=== PATIENT | male | born 1975 | race Two or more races ===

== ENCOUNTER 2018-12-02 19:21 | Inpatient (IN) | payer OTHER ==
[~2018-12-02] VITALS: Ht 177.8 cm; Wt 124.0 kg
[2018-12-02] MEDS ORDERED: cloNIDine HCL 0.1 MG TAB ONE (19:31)
[2018-12-02] MEDS ORDERED: cloNIDine HCL 0.1 MG TAB PO ONE (19:45)
[2018-12-02 20:02] LABS: Basophils # (auto) 0.1 uL; Eosinophils # (auto) 0.3 uL; Hematocrit 26.2 % (41.0-53.0); Hemoglobin 8.8 g/dL (13.5-17.5); Lymphocytes # (auto) 2.1 uL; Lymphocytes % (auto) 15.3 % (10.0-50.0); Mean Corpuscular Hemoglobin 28.1 pg (28.0-32.0); Mean Corpuscular Hgb Conc. 33.6 g/dL (32.0-36.0); Mean Corpuscular Volume 83.7 fL (80.0-100.0); Monocytes % (auto) 7.6 % (0.0-12.0); Neutrophils # (auto) 10.3 uL; Neutrophils % (auto) 74.1 % (37.0-80.0); Platelet Count (auto) 286 10^3/uL (140-450); Red Blood Cells 3.13 10^6/uL (4.5-5.90); White Blood Cell 13.8 10^3/uL (4.4-10.8)
[2018-12-02 20:28] LABS: Albumin 2.6 g/dL (3.4-5.0); Calcium 7.3 mg/dL (8.5-10.1); Magnesium 1.9 mg/dL (1.6-2.6); Potassium 3.6 mmol/L (3.5-5.1)
[2018-12-02 20:33] LABS: Bilirubin, Total 0.2 mg/dL (0.2-1.0)
[2018-12-02] MEDS ORDERED: SODIUM CHLORIDE 0.9% 500 ML IV ONE (20:45)
[2018-12-02] MEDS ORDERED: ALBUTEROL SULF 2.5 MG/0.5ML(0.5%) NEB SOLN NEB ONE (20:45)
[2018-12-02] MEDS ORDERED: IPRATROPIUM BROM 0.5 MG/2.5ML INH SOL NEB ONE (20:45)
[2018-12-02] MEDS ORDERED: methylPREDNISolone SOD SUCC 125 MG/2 ML VL IV ONE (20:45)
[2018-12-02 22:13] LABS: Urine Bacteria FEW /hpf (None Seen); Urine Blood 1+ /uL (Negative); Urine Specific Gravity 1.012 (1.001-1.035); Urine WBC 4 /hpf (0 - 3)
[2018-12-02] MEDS ORDERED: AZITHROMYCIN 500MG/ 250ML 250 ML IV ONE (23:00)
[2018-12-02] MEDS ORDERED: cefTRIAXone 1GM/50ML D5W 50 ML IV ONE (23:00)
[2018-12-02] MEDS ORDERED: ENOXAPARIN SOD 100 MG/1 ML SYRINGE SC ONE (23:15)
[2018-12-02] MEDS ORDERED: cloNIDine HCL 0.1 MG TAB PO PRN (23:15)
[2018-12-02] MEDS ORDERED: DEXTROSE (50%) 50ML SYRG IV PRN (23:15)
[2018-12-02] MEDS ORDERED: ONDANSETRON HCL 4 MG/2 ML VIAL IV PRN (23:15)
[2018-12-02] MEDS ORDERED: ACETAMINOPHEN 325 MG TAB PO PRN (23:15)
[2018-12-02] MEDS ORDERED: FUROSEMIDE 20 MG/2 ML VIAL IV ONE (23:15)
[2018-12-02] MEDS ORDERED: MORPHINE SULF INJ 2 MG/ML SYRINGE 1ML IV PRN (23:15)
[2018-12-02] MEDS ORDERED: NITROGLYCERIN 0.4 MG SL TAB SL PRN (23:15)
[2018-12-02] MEDS ORDERED: TEMAZEPAM 15 MG CAP PO PRN (23:15)
[2018-12-02] MEDS ORDERED: ALBUTEROL SULF 2.5 MG/0.5ML(0.5%) NEB SOLN NEB PRN (23:15)
[2018-12-02] MEDS ORDERED: ATORVASTATIN 20 MG TAB PO ONE (23:15)
[2018-12-02] MEDS ORDERED: METOPROLOL TARTRATE 25 MG TAB PO ONE (23:15)
[2018-12-02] MEDS ORDERED: HYDROcodone-ACET 5/325MG TAB PO PRN (23:15)
[2018-12-02 23:56] LABS: Cholesterol 160 mg/dL (< 200)
--- NOTE | 2018-12-02 23:58 | NUR ---
Telemetry admit from ER ANTIONETTE BUCKLEY admitted to Telemetry unit after SBAR received. Patient oriented to Robbie Mcnally, primary RN, unit, room, bed, and unit policies regarding patient care and visiting hours. Patient now on continuous telemetry monitoring, tele box # 8 and telemetry reading on arrival to unit is sinus rhythm. Patient placed on bedside oxygen at 3 LPM, weighed by bedscale and encouraged to call if they need something. All questions and concerns addressed, patient verbalized understanding.
[2018-12-03] VITALS (8 sets, daily range): BP systolic 141–161; BP diastolic 82–89
[2018-12-03] LABS: HDL Cholesterol 35 mg/dL (40-59); Triglycerides 301 mg/dL (< 150)
[2018-12-03 00:16] LABS: LDL Cholesterol 90 mg/dL (< 100)
[2018-12-03] MEDS: ACCU-CHEK COMFORT CURVE STRIP VI SCH ×4 (00:25→17:21)
[2018-12-03] MEDS: InsuLIN REG 1unit/0.01ml Soln (100units/ml) SC SCH ×4 (00:26→17:21)
--- NOTE | 2018-12-03 00:43 | NUR ---
Respiratory note: ASSESSMENT FOR PRN MED NEB TX. HR 91, SPO2 97% ON 3L NC, RR 20, BS CLEAR/DIMINISHED. PT PRESENTING NO RESPIRATORY DISTRESS AT THIS TIME. RN AT BEDSIDE, WILL CONTINUE TO MONITOR.
[2018-12-03] MEDS ORDERED: LISI-646 PO (02:40)
[2018-12-03] MEDS ORDERED: HYDR25TA4 PO (02:40)
[2018-12-03] MEDS ORDERED: INSUINJ2 SC (02:40)
[2018-12-03] MEDS ORDERED: AMLO5TAB15 PO (02:40)
[2018-12-03] MEDS ORDERED: METF-370 PO (02:40)
[2018-12-03 06:20] LABS: Basophils # (auto) 0 uL; Basophils % (auto) 0.4 % (0.0-2.0); Eosinophils # (auto) 0 uL; Hematocrit 28.8 % (41.0-53.0); Hemoglobin 9.3 g/dL (13.5-17.5); Mean Corpuscular Hemoglobin 28.1 pg (28.0-32.0); Mean Corpuscular Hgb Conc. 32.3 g/dL (32.0-36.0); Mean Corpuscular Volume 86.9 fL (80.0-100.0); Monocytes # (auto) 0.1 uL; Monocytes % (auto) 0.8 % (0.0-12.0); Neutrophils # (auto) 11.1 uL; Neutrophils % (auto) 90.8 % (37.0-80.0); Platelet Count (auto) 290 10^3/uL (140-450); Red Blood Cells 3.32 10^6/uL (4.5-5.90); Red Cell Distribution Width 14.2 % (11.8-14.3); White Blood Cell 12.2 10^3/uL (4.4-10.8)
[2018-12-03 06:39] LABS: Albumin 2.5 g/dL (3.4-5.0); BUN/Creatinine Ratio 11.9; Calcium 7.6 mg/dL (8.5-10.1); Potassium 4.5 mmol/L (3.5-5.1)
[2018-12-03 06:44] LABS: Bilirubin, Total 0.4 mg/dL (0.2-1.0); Total Protein 7.3 g/dL (6.4-8.2)
--- NOTE | 2018-12-03 07:04 | NUR ---
Respiratory note: PRN MED NEB TX NOT INDICATED AT THIS TIME. HR 91, RR 16, SPO2 96% ON 4 L NC, BS CLEAR AND DIMINISHED. NO SIGNS OR SYMPTOMS OF RESPIRATORY DISTRESS NOTED AT THIS TIME.PT INFORMED TO HIT CALL BUTTON IF FEELING SOB OR WHEEZING.
--- NOTE | 2018-12-03 07:45 | NUR ---
Opening Shift Note Assumed care of patient, resting with eyes closed, respirations even and unlabored. No S/S of distress/SOB or pain. Will continue to monitor for changes Q1hr and PRN.
--- NOTE | 2018-12-03 09:00 | NUR ---
NEPHRO CONSULT Dr Granda rounded for nephro consult.
[2018-12-03] MEDS ORDERED: ASPirin 81 mg TAB PO SCH (10:00)
[2018-12-03] MEDS: METOPROLOL TARTRATE 25 MG TAB PO SCH ×2 (10:45→21:35)
[2018-12-03] MEDS: cefTRIAXone 1GM/50ML D5W 50 ML IV SCH (10:45)
[2018-12-03] MEDS: BUMETANIDE 2.5mg/10ml (0.25 mg/ml) INJ IV SCH ×2 (10:46→17:22)
[2018-12-03] MEDS ORDERED: LISINOPRIL 20 MG TAB PO ONE (13:00)
[2018-12-03] MEDS ORDERED: CLOPIDOGREL 300 MG TAB PO ONE (13:00)
--- NOTE | 2018-12-03 13:11 | NUR ---
ROUNDING Dr Ron Villarreal rounding with primary RN and patients family at bedside. Discussed test results, medications, and plan of care. Patient verbalized understanding. Patient asked to eat, verbal order read back and noted.
[2018-12-03] MEDS: AZITHROMYCIN 500MG/ 250ML 250 ML IV SCH (13:29)
[2018-12-03 14:19] LABS: Alcohol, Urine < 3.0 mg/dL (0-5); Amphetamine Screen, Urine NEGATIVE (NEGATIVE); Barbiturate Scree,Urine NEGATIVE (NEGATIVE); Benzodiazephine Screen, Urine NEGATIVE (NEGATIVE); Cannabinoid Screen, Urine NEGATIVE (NEGATIVE); Cocaine Screen, Urine NEGATIVE (NEGATIVE); Opiate Scree,Urine NEGATIVE (NEGATIVE); Phencyclidine Screen, Urine NEGATIVE (NEGATIVE)
[2018-12-03 14:27] LABS: Protein, Urine 375.3 mg/dL (0.0-11.9)
--- NOTE | 2018-12-03 16:56 | NUR ---
CARDIO CONSULT Dr Strong rounding on patient with primary RN. Patient mom at bedside. Discussed plan of care and medications. Orders updated with RN and MD.
[2018-12-03] MEDS ORDERED: LISI-285 PO (17:32)
[2018-12-03] MEDS ORDERED: INSREG3 SUBCUT (17:32)
--- NOTE | 2018-12-03 18:20 | NUR ---
Respiratory note: NO PRN TX GIVEN AT THIS TIME, NOT INDICATED. NO SOB NOTED. PT AWAKE AND ALERT, FAMILY AT BEDSIDE. PT IS ORDERED FOR CPAP AT NOC, STATES HE GOES TO SLEEP AROUND 9. WILL RETURN AT 2100 FOR CPAP. PT ASKING FOR DINNER IDGNA PAPPAS NOTIFIED.
--- NOTE | 2018-12-03 20:30 | NUR ---
Opening Shift Note Assumed care of patient, awake and alert. Orientated patient to RNSharmin. No S/S of distress/SOB or pain. Instructed on POC and to call for assist PRN, will continue to monitor for changes Q1hr and PRN. Call light within reach and bed in low position.
[2018-12-03] MEDS: hydrALAZINE HCL 25 MG TAB PO SCH (21:35)
[2018-12-03] MEDS: ATORVASTATIN 20 MG TAB PO SCH (21:35)
--- NOTE | 2018-12-03 21:40 | NUR ---
Respiratory note: PT PLACED ON CPAP FOR THE NOC ORDERED. PT DENIES SOB OR ANY NEEDS AT THIS TIME. SPO2 96%, HR 88, RR 16, BREATH SOUNDS CLEAR/DIMINISHED THROUGHOUT. NO PRN TX GIVEN. WILL CONTINUE TO MONITOR.
[2018-12-04] MEDS: InsuLIN REG 1unit/0.01ml Soln (100units/ml) SC SCH ×4 (00:07→19:41)
[2018-12-04] MEDS: ACCU-CHEK COMFORT CURVE STRIP VI SCH ×4 (00:07→17:39)
[2018-12-04 05:20] VITALS: BP 133/82
[2018-12-04] MEDS: BUMETANIDE 2.5mg/10ml (0.25 mg/ml) INJ IV SCH ×2 (05:39→17:38)
[2018-12-04] MEDS: hydrALAZINE HCL 25 MG TAB PO SCH ×3 (05:40→22:28)
--- NOTE | 2018-12-04 06:45 | NUR ---
Respiratory note: ASSESSED PT FOR PRN TX, PT WAS AWAKE AND ALERT, NO RESP DISTRESS NOTED. HR 76, RR 18, SPO2 97% ON 2L N/C. BS ARE CLEAR AND DIMINISHED, NO INDICATION FOR TX AT THIS TIME. PT KNOWS TO HAVE RT PAGED IF TX IS NEEDED
[2018-12-04 07:02] LABS: Albumin 2.5 g/dL (3.4-5.0); Calcium 7.8 mg/dL (8.5-10.1); Potassium 3.7 mmol/L (3.5-5.1)
[2018-12-04 07:05] LABS: Bilirubin, Total 0.2 mg/dL (0.2-1.0); Phosphorus 5.3 mg/dL (2.5-4.90); Total Protein 7.2 g/dL (6.4-8.2)
--- NOTE | 2018-12-04 07:23 | NUR ---
Report given to julita HOLLEY
--- NOTE | 2018-12-04 07:42 | NUR ---
Opening Shift Note Assumed care of patient, awake and alert. No S/S of distress/SOB or pain. Instructed on POC and to call for assist PRN, will continue to monitor for changes Q1hr and PRN. Call light within reach.
[2018-12-04 08:00] VITALS: BP 154/93
--- NOTE | 2018-12-04 08:44 | NUR ---
[facility]-NOT ON SCHEDULE CALLED AND SPOKE TO ANIMAL BOUNTY HUNTER RN. PER RN PATIENT IS NOT ON SCHEDULE FOR [facility] TODAY
[2018-12-04] MEDS: cefTRIAXone 1GM/50ML D5W 50 ML IV SCH (08:48)
[2018-12-04] MEDS ORDERED: CLOPIDOGREL BISULFATE 75 MG TAB PO SCH (10:00)
[2018-12-04] MEDS ORDERED: LISINOPRIL 20 MG TAB PO SCH (10:00)
[2018-12-04] MEDS: METOPROLOL TARTRATE 25 MG TAB PO SCH ×2 (10:26→22:29)
[2018-12-04] MEDS: AZITHROMYCIN 500MG/ 250ML 250 ML IV SCH (10:27)
[2018-12-04] MEDS: ASPirin 81 mg TAB PO SCH (10:27)
--- NOTE | 2018-12-04 10:44 | NUR ---
MD ROSEANN WHITFIELD AT BEDSIDE DISCUSSING POC WITH PATIENT. POC-RADIOLOGY CONSULT RE: TUNNEL CATH PLACEMENT WITH DIALYSIS
[2018-12-04] MEDS: SEVELAMER 800 MG TAB PO SCH ×2 (11:42→17:38)
[2018-12-04 12:00] VITALS: BP 160/90
--- NOTE | 2018-12-04 12:20 | NUR ---
AT BEDSIDE MD Clovis OBRIEN AT BEDSIDE UPDATING POC WITH PATIENT. ALL QUESTIONS ANSWERED AND ADDRESSED AT THIS TIME.
[2018-12-04 13:41] LABS: INR < 0.93 (0.9-1.15); Partial Thromboplastin Time 28.8 sec (23.64-32.05)
--- NOTE | 2018-12-04 14:15 | NUR ---
ULTRASOUND TECHNICIAN AT BEDSIDE
[2018-12-04 17:00] VITALS: BP 155/95
[2018-12-04] MEDS ORDERED: SODIUM CHLORIDE 0.9% 1,000 ML IV SCH (17:32)
[2018-12-04 17:42] LABS: Hepatitis B Surface Antigen Negative (Negative); Hepatitis C Antibody Negative (Negative)
[2018-12-04] MEDS ORDERED: amLODIPine BESYLATE 5 MG TAB PO ONE (17:45)
--- NOTE | 2018-12-04 18:56 | NUR ---
CARDIOLOGY CARDIOLOGY AT BEDSIDE REGARDING HEART CATH.
--- NOTE | 2018-12-04 19:30 | NUR ---
Opening Shift Note Assumed care of patient, awake and alert. No S/S of distress/SOB or pain. Instructed on POC and to call for assist PRN, will continue to monitor for changes Q1hr and PRN.
[2018-12-04 20:00] VITALS: BP 185/98
[2018-12-04 22:00] VITALS: BP 168/94
[2018-12-04] MEDS: ATORVASTATIN 20 MG TAB PO SCH (22:28)
[2018-12-05 05:00] VITALS: BP 149/94
[2018-12-05] MEDS: ACCU-CHEK COMFORT CURVE STRIP VI SCH ×4 (06:00→18:51)
[2018-12-05] MEDS: InsuLIN REG 1unit/0.01ml Soln (100units/ml) SC SCH ×4 (06:00→18:00)
[2018-12-05 06:06] LABS: RPR Non Reactive (Non Reactive)
[2018-12-05 06:15] LABS: Basophils # (auto) 0.1 uL; Basophils % (auto) 0.9 % (0.0-2.0); Eosinophils # (auto) 0.4 uL; Hematocrit 29.8 % (41.0-53.0); Hemoglobin 9.8 g/dL (13.5-17.5); Lymphocytes % (auto) 23.1 % (10.0-50.0); Mean Corpuscular Hemoglobin 27.6 pg (28.0-32.0); Mean Corpuscular Hgb Conc. 32.9 g/dL (32.0-36.0); Mean Corpuscular Volume 83.9 fL (80.0-100.0); Monocytes # (auto) 0.9 uL; Monocytes % (auto) 7.3 % (0.0-12.0); Neutrophils # (auto) 8.4 uL; Neutrophils % (auto) 65.7 % (37.0-80.0); Platelet Count (auto) 340 10^3/uL (140-450); Red Blood Cells 3.55 10^6/uL (4.5-5.90); Red Cell Distribution Width 14.1 % (11.8-14.3); White Blood Cell 12.8 10^3/uL (4.4-10.8)
[2018-12-05] MEDS: hydrALAZINE HCL 25 MG TAB PO SCH ×3 (06:24→21:50)
[2018-12-05] MEDS: BUMETANIDE 2.5mg/10ml (0.25 mg/ml) INJ IV SCH ×2 (06:24→21:50)
[2018-12-05 06:32] LABS: Albumin 2.6 g/dL (3.4-5.0); BUN/Creatinine Ratio 14.1; Calcium 7.8 mg/dL (8.5-10.1); Potassium 3.5 mmol/L (3.5-5.1)
[2018-12-05 06:41] LABS: INR 0.94 (0.9-1.15)
[2018-12-05 06:54] LABS: Bilirubin, Total 0.2 mg/dL (0.2-1.0); Total Protein 7.3 g/dL (6.4-8.2)
--- NOTE | 2018-12-05 07:20 | NUR ---
Report given to day shift RN.
[2018-12-05 07:21] LABS: Urine Bacteria NONE SEEN /hpf (None Seen); Urine Blood TRACE /uL (Negative); Urine Specific Gravity 1.008 (1.001-1.035); Urine WBC 4 /hpf (0 - 3)
--- NOTE | 2018-12-05 07:54 | NUR ---
Respiratory note: ASSESSED PT FOR PRN TX PT WAS ASLEEP. NO RESP DISTRESS NOTED. HR 89, RR 18, SPO2 98% ON 2L N/C. PT DID NOT WEAR CPAP LAST NIGHT, BUT WOULD LIKE TO WEAR IT TONIGHT. PT KNOWS TO HAVE RT PAGED IF TX IS NEEDED.
[2018-12-05 08:00] VITALS: BP 156/96
[2018-12-05] MEDS: SEVELAMER 800 MG TAB PO SCH ×3 (08:00→18:51)
--- NOTE | 2018-12-05 08:00 | NUR ---
Opening Shift Note Assumed care of patient, awake but very drowsy. No S/S of distress/SOB or pain. Instructed on POC and to call for assist PRN, will continue to monitor for changes Q1hr and PRN. Patient NPO for heart cath today.
[2018-12-05 08:11] LABS: Immunoglobulin G, Serum 1236 mg/dL (700-1600)
[2018-12-05] MEDS: cefTRIAXone 1GM/50ML D5W 50 ML IV SCH (09:15)
[2018-12-05] MEDS: ASPirin 81 mg TAB PO SCH (09:16)
[2018-12-05] MEDS: AZITHROMYCIN 500MG/ 250ML 250 ML IV SCH (09:17)
[2018-12-05] MEDS: METOPROLOL TARTRATE 25 MG TAB PO SCH ×2 (09:17→21:50)
[2018-12-05] MEDS: amLODIPine BESYLATE 5 MG TAB PO SCH (09:17)
[2018-12-05] MEDS ORDERED: SODIUM CHL 0.9% 1000 ML BAG XX ONE (10:45)
--- NOTE | 2018-12-05 10:50 | NUR ---
Dr. Villarreal at bedside.
[2018-12-05 12:00] VITALS: BP 164/88
--- NOTE | 2018-12-05 13:55 | NUR ---
Off Unit Patient taken to ballistics laboratory gunsmith for procedure. No obvious distress noted.
--- NOTE | 2018-12-05 14:22 | NUR ---
Nutrition Assessment Notes please see attached link for complete assessment Est. Needs ABW 100 [id number] kcal (17-20 kcal/kgBW), 80-100 gms pro (0.8-1.0gms/kgBW r/t elev RFT CKD. Will continue to monitor pertinent labs and reassess nutrient need prn Addendum: 12/05/18 at [address] L[address] Amended: Links added.
[2018-12-05] MEDS ORDERED: HEPARIN SODIUM (PORCINE) 5000 UNITS/ML 1ML VIAL ONE (14:33)
[2018-12-05] MEDS ORDERED: ANGIOMAX 250 MG VIAL IV ONE (14:33)
[2018-12-05] MEDS ORDERED: LIDOCAINE 2%HCL (LOCAL ANESTH.) INJ 20ML MDV ONE ×2 (14:34→14:46)
[2018-12-05] MEDS ORDERED: fentaNYL CITRATE 100 MCG/2 ML VL ONE (14:34)
[2018-12-05] MEDS ORDERED: MIDAZOLAM HCL 1MG/1ML-2 ML VIAL ONE (14:34)
[2018-12-05] MEDS ORDERED: SODIUM CHL 0.9% 0 ML ONE (14:34)
[2018-12-05] MEDS ORDERED: IODIXANOL 320MG/ML 100ML BTL IV ONE (14:46)
--- NOTE | 2018-12-05 16:00 | NUR ---
Dialysis Dialysis nurse at patient's bedside awaiting his return to the unit. Patient is scheduled for dialysis today.
--- NOTE | 2018-12-05 16:23 | NUR ---
I called [facility] ph [phone] and received two hemodialysis agencies and one HH agency they are contracted with. HD agencies are [facility] [phone] and [facility] [phone]. HH agency is [facility]. I informed psychologist social
--- NOTE | 2018-12-05 17:11 | NUR ---
Dr. Kalee artis. Patient still off unit, at civil laboratory technician.
--- NOTE | 2018-12-05 17:20 | NUR ---
On Unit Patient returned to unit post left heart catheterization. Dressing to right groin dry and intact. Patient to lay flat in until 1830. Patient had dialysis catheter placed to right upper chest. Dressing intact, however bleeding noted around site. area loss prevention manager is aware. Family members at bedside.
[2018-12-05 18:14] VITALS: BP 164/88
--- NOTE | 2018-12-05 19:20 | NUR ---
Assumed care of patient who is A&O x4. Currently receiving dialysis through tunneled cath in right IJ. on O2 2lpm via NC with no s/s of distress. 22 gauge IV in right hand is intact and patent. Flushed with 10ml NS. Will continue to to monitor fo changes PRN.
[2018-12-05 20:00] VITALS: BP 153/87
--- NOTE | 2018-12-05 20:10 | NUR ---
Dialysis complete. 1.2L removed. Patient tolerated well. Post dialysis BP: 168/92 HR: 93 RR: 16. Dressing changed by dialysis nurse.
[2018-12-05] MEDS ORDERED: EPOETIN ALFA 10,000 UNIT/1 ML VIAL SC ONE (21:00)
[2018-12-05 21:30] VITALS: BP 143/87
[2018-12-05] MEDS: ATORVASTATIN 20 MG TAB PO SCH (21:50)
--- NOTE | 2018-12-05 23:00 | NUR ---
ROUNDS Patient resting in bed with eyes closed, C-pap on.
[2018-12-06] MEDS: ACCU-CHEK COMFORT CURVE STRIP VI SCH ×5 (00:11→23:32)
[2018-12-06] MEDS: InsuLIN REG 1unit/0.01ml Soln (100units/ml) SC SCH ×5 (00:15→23:37)
[2018-12-06] MEDS: BUMETANIDE 2.5mg/10ml (0.25 mg/ml) INJ IV SCH ×2 (05:49→18:22)
[2018-12-06] MEDS: hydrALAZINE HCL 25 MG TAB PO SCH ×3 (05:49→22:39)
[2018-12-06 05:59] VITALS: BP 148/64
[2018-12-06 07:39] LABS: Albumin 2.5 g/dL (3.4-5.0); BUN/Creatinine Ratio 11.7; Calcium 7.8 mg/dL (8.5-10.1); Potassium 3.4 mmol/L (3.5-5.1)
--- NOTE | 2018-12-06 07:40 | NUR ---
Opening Shift Note Assumed care of patient, awake and alert sitting up in bed. No S/S of distress/SOB or pain. Right upper chest of patient's gown noticed to be moderately soiled with blood. Dressing to his tunnel catheter soaked, but intact. Will do catheter care. Instructed on POC and to call for assist PRN, will continue to monitor for changes Q1hr and PRN.
[2018-12-06 07:41] LABS: Bilirubin, Total 0.3 mg/dL (0.2-1.0)
[2018-12-06 07:42] LABS: Total Protein 7.1 g/dL (6.4-8.2)
--- NOTE | 2018-12-06 07:50 | NUR ---
Respiratory note: NO PRN BREATHING TX INDICATED AT THIS TIME. NO RESPIRATORY DISTRESS NOTED OR STATED. PATIENT IS AWARE TO HAVE RT PAGED IF PRN BREATHING TX IS NEEDED. WILL CONTINUE TO MONITOR PATIENT.
--- NOTE | 2018-12-06 08:00 | NUR ---
Dressing change Dressing change to tunnel catheter completed. Patient tolerated procedure well.
[2018-12-06] MEDS: SEVELAMER 800 MG TAB PO SCH ×3 (08:25→18:22)
[2018-12-06] MEDS: ASPirin 81 mg TAB PO SCH (08:25)
[2018-12-06] MEDS: cefTRIAXone 1GM/50ML D5W 50 ML IV SCH (08:26)
[2018-12-06] MEDS: amLODIPine BESYLATE 5 MG TAB PO SCH (08:26)
[2018-12-06] MEDS: METOPROLOL TARTRATE 25 MG TAB PO SCH ×2 (08:26→22:40)
--- NOTE | 2018-12-06 08:37 | NUR ---
Ceftriaxone Ceftriaxone leaking, new one pulled and given.
[2018-12-06 08:44] VITALS: BP 138/103
[2018-12-06] MEDS: AZITHROMYCIN 500MG/ 250ML 250 ML IV SCH (09:44)
[2018-12-06] MEDS ORDERED: POTASSIUM CHL 20 Meq TABLET PO ONE (12:30)
--- NOTE | 2018-12-06 12:30 | NUR ---
assessment Patient is a 43 year old male who is alert and oriented. Prior to admission patient lived home with his and family and functioned independently. Patient informed me his PCP is Dr Townsend in [place]. Patient informed me he works in [place] and still wants to work even though he is a new dialysis patient. I informed patient to speak to MD about his work concerns. Patient is aware of his new diagnosis and is dealing well with the news. I informed patient he has a right to privacy. Patient does not have a POA and advanced directive. I have offered patient information on POA and advanced directives. I informed the patient the advantages and benefits of having an Advanced Directive. Patient verbalized understanding and agreed to discharge plan. Addendum: 12/07/18 at 1233 by Zhane SKELTON Amended: Links added.
--- NOTE | 2018-12-06 12:35 | NUR ---
Nephrology Rounding Dr. Granda at bedside.
[2018-12-06 13:00] VITALS: BP 146/86
[2018-12-06 16:59] VITALS: BP 149/87
--- NOTE | 2018-12-06 19:20 | NUR ---
Assumed care of patient who is A&) x4. Currently on RA with no s/s of SOB or distress. Denies pain at this time. Family is at the bedside. bloody drainage from tunneled catheter noted. Drainage circled. Will continue to monitor site. POC discussed with patient who verbalizes understanding. Bed is in low locked position with side rails up x2. Encouraged to call for assistance when needed. Will continue to monitor for changes PRN.
--- NOTE | 2018-12-06 19:40 | NUR ---
Respiratory note: ASSESSMENT FOR PRN MED NEB TX. HR 97, SPO2 96% ON ROOM AIR, RR 16, BS DIMINISHED. PT PRESENTING NO RESPIRATORY DISTRESS AT THIS TIME. MED NEB TX NOT INDICATED. PT AWARE TO HAVE RN PAGE RT IF MED NEB TX IS NEEDED, WILL CONTINUE TO MONITOR.
[2018-12-06 20:00] VITALS: BP 156/92
--- NOTE | 2018-12-06 22:30 | NUR ---
Drainage from tunneled catheter has surpassed marking place at start of shift. Saturated dressing removed and replaced with sterile ABD pad. Secured with Tegaderm. Patient tolerated well. Will continue to monitor for continued drainage.
[2018-12-06] MEDS: ATORVASTATIN 20 MG TAB PO SCH (22:40)
[2018-12-06 22:44] VITALS: BP 156/92
--- NOTE | 2018-12-07 | NUR ---
Tunneled catheter dressing reassessed and is clean, dry and intact. Will continue to monitor for changes.
--- NOTE | 2018-12-07 03:30 | NUR ---
ROUNDS Patient is resting in bed on left side, with c-pap on. Spo2 is 95% No distress noted. Gauze over tunneled catheter dressing assessed and remains CDI.
[2018-12-07] MEDS: hydrALAZINE HCL 25 MG TAB PO SCH ×2 (05:32→14:00)
[2018-12-07] MEDS: BUMETANIDE 2.5mg/10ml (0.25 mg/ml) INJ IV SCH (05:32)
[2018-12-07] MEDS: ACCU-CHEK COMFORT CURVE STRIP VI SCH ×2 (05:33→12:52)
[2018-12-07] MEDS: InsuLIN REG 1unit/0.01ml Soln (100units/ml) SC SCH ×2 (05:35→12:53)
[2018-12-07 06:00] VITALS: BP 165/90
--- NOTE | 2018-12-07 06:11 | NUR ---
RT NOTE: WENT TO PTS ROOM TO CHECK ON CPAP MACHINE. PT IS CURRENTLY OFF OF CPAP AND ON 2 LPM NC. PT IS ON CONT BEDSIDE PULSE OX. HR 88, SPO2 96%, RR 16, PT SLEEPING AT THIS TIME. NO S/S OF SOB. WILL CONTINUE TO MONITOR PT.
[2018-12-07] MEDS ORDERED: SODIUM CHL 0.9% 1000 ML BAG XX ONE (07:00)
--- NOTE | 2018-12-07 08:00 | NUR ---
Opening Shift Note Assumed care of patient, awake and alert. No S/S of distress/SOB or pain. With tunneled dialysis catheter on right upper chest. Patient is scheduled for hemodialysis today. Instructed on POC and to call for assist PRN, will continue to monitor for changes Q1hr and PRN.
[2018-12-07 09:00] VITALS: BP 175/92
[2018-12-07] MEDS: SEVELAMER 800 MG TAB PO SCH ×2 (09:12→12:00)
[2018-12-07] MEDS: cefTRIAXone 1GM/50ML D5W 50 ML IV SCH (09:12)
[2018-12-07] MEDS: amLODIPine BESYLATE 5 MG TAB PO SCH (10:00)
[2018-12-07] MEDS: METOPROLOL TARTRATE 25 MG TAB PO SCH (10:00)
[2018-12-07] MEDS: ASPirin 81 mg TAB PO SCH (10:08)
[2018-12-07] MEDS: AZITHROMYCIN 500MG/ 250ML 250 ML IV SCH (10:09)
[2018-12-07 13:00] VITALS: BP 135/92
--- NOTE | 2018-12-07 15:30 | NUR ---
Spoke with Odessa of case management re: dialysis chair time, they are still working on it.
--- NOTE | 2018-12-07 16:00 | NUR ---
Hemodialysis done. 3liters out.
[2018-12-07 17:00] VITALS: BP 127/77
--- NOTE | 2018-12-07 17:10 | NUR ---
Received a call from Xiomy of [facility]. Patient got a dialysis chair time and will start outpatient dialysis next Monday 12/11. Spoke with Odessa of case management, she is discussing the chair time with Xiomy right now. Per Odessa, she will record the details of the chair time then patient can go home as long as medically cleared.
[2018-12-07 17:34] VITALS: BP 135/92
--- NOTE | 2018-12-07 18:14 | NUR ---
D/C planning Per consult for dialysis chair time. Contacted and faxed medical records to [facility] and [facility] in [place]. Félix Stauffer from [facility] Ph: ) Fax: ) pt chair time will be Monday at 13:30 and pt need to arrive at 13:00. Félix Stauffer from [facility] address of dialysis is [id number] [place] [address] [place] [address]. Addendum: 12/07/18 at 1818 by ADONIS GUTIERRES Amended: Links added.
--- NOTE | 2018-12-07 19:00 | NUR ---
Discharge instructions given as ordered. Encourage to follow up with PMD Kranthi Parker in 1-2 weeks as instructed. All questions and concerns addressed. Patient verbalized understanding. Medication reconciliation form completed and copy given to patient. IV removed with catheter intact, pressure dressing applied. Telemetry unit returned to ICU. Patient taken to vehicle via wheelchair with all personal belongings, accompanied by staff and family member. No distress noted at time of departure.
[2018-12-07] MEDS ORDERED: EPOETIN ALFA 10,000 UNIT/1 ML VIAL SC ONE (21:00)
== END 2018-12-07 17:00 | disposition home or self-care (01) | DRG 280 ==
LOC: ER 19:27 → TELE 19:28 → TELE-EAST 23:28
PROVIDERS: ADMIT Nurse Practitioner; ATTEND Family Medicine
PROC: 4A023N7 Measurement of Cardiac Sampling and Pressure, Left Heart, Percutaneous Approach (ICD-10-PCS; principal; 2018-12-02)
PROC: B2111ZZ Fluoroscopy of Multiple Coronary Arteries using Low Osmolar Contrast (ICD-10-PCS; 2018-12-02)
PROC: B2151ZZ Fluoroscopy of Left Heart using Low Osmolar Contrast (ICD-10-PCS; 2018-12-02)
PROC: 5A1D70Z Performance of Urinary Filtration, Intermittent, Less than 6 Hours Per Day (ICD-10-PCS; 2018-12-02)
PROC: 5A1D70Z Performance of Urinary Filtration, Intermittent, Less than 6 Hours Per Day (ICD-10-PCS; 2018-12-05)
DX: I21.A1 Myocardial infarction type 2 (principal); I50.33 Acute on chronic diastolic (congestive) heart failure; J18.1 Lobar pneumonia, unspecified organism; N17.0 Acute kidney failure with tubular necrosis; N18.6 End stage renal disease; I13.2 Hypertensive heart and chronic kidney disease with heart failure and with stage 5 chronic kidney disease, or end stage renal disease; J44.0 Chronic obstructive pulmonary disease with (acute) lower respiratory infection; D63.1 Anemia in chronic kidney disease; E11.22 Type 2 diabetes mellitus with diabetic chronic kidney disease; E11.65 Type 2 diabetes mellitus with hyperglycemia; E66.01 Morbid (severe) obesity due to excess calories; E78.00 Pure hypercholesterolemia, unspecified; E83.39 Other disorders of phosphorus metabolism; G47.33 Obstructive sleep apnea (adult) (pediatric); I27.20 Pulmonary hypertension, unspecified; N14.1 Nephropathy induced by other drugs, medicaments and biological substances; T50.8X5A Adverse effect of diagnostic agents, initial encounter; Z79.899 Other long term (current) drug therapy; Z87.01 Personal history of pneumonia (recurrent); Z98.61 Coronary angioplasty status; Z99.2 Dependence on renal dialysis; Z68.39 Body mass index [BMI] 39.0-39.9, adult
CPT/HCPCS: 36415; 71045; 76775; 76942; 80053; 80061; 80307; 81001; 82306; 82570; 82784; 82962; 83036; 83605; 83735; 83880; 83970; 84100; 84156; 84300; 84484; 84550; 85025; 85610; 85730; 86334; 86335; 86592; 86803; 86850; 86900; 86901; 87040; 87340; 90935; 93005; 93306; 93458; 94640; 94660; 94762; 96374; G0378; J0696; J0885; J1642; J1815; J2250; Q9967

== ENCOUNTER 2019-02-21 10:16 | Inpatient (IN) | payer OTHER ==
[~2019-02-21] VITALS: Ht 177.8 cm; Wt 121.5 kg
[~2019-02-21 10:16] MED LIST: AMLO5TAB15 PO; INSREG3 SUBCUT; INSUINJ2 SC; LISI-285 PO; METF-370 PO
[2019-02-21 11:25] LABS: Basophils # (auto) 0.1 uL; Basophils % (auto) 0.8 % (0.0-2.0); Eosinophils # (auto) 0.3 uL; Eosinophils % (auto) 2.9 % (0.0-7.0); Hematocrit 31.1 % (41.0-53.0); Hemoglobin 10.6 g/dL (13.5-17.5); Lymphocytes # (auto) 2.6 uL; Lymphocytes % (auto) 23.1 % (10.0-50.0); Mean Corpuscular Hemoglobin 29.8 pg (28.0-32.0); Mean Corpuscular Volume 87.4 fL (80.0-100.0); Monocytes # (auto) 0.8 uL; Neutrophils # (auto) 7.4 uL; Neutrophils % (auto) 66.2 % (37.0-80.0); Platelet Count (auto) 289 10^3/uL (140-450); Red Blood Cells 3.55 10^6/uL (4.5-5.90); Red Cell Distribution Width 15.9 % (11.8-14.3); White Blood Cell 11.2 10^3/uL (4.4-10.8)
[2019-02-21 11:35] LABS: Albumin 3.2 g/dL (3.4-5.0); Potassium 4.3 mmol/L (3.5-5.1)
[2019-02-21 11:39] LABS: BUN/Creatinine Ratio 10.5; Bilirubin, Total 0.3 mg/dL (0.2-1.0); INR 0.98 (0.9-1.15)
[2019-02-21] MEDS ORDERED: ACETAMINOPHEN 500 MG TAB PO PRN (18:45)
[2019-02-21] MEDS ORDERED: TEMAZEPAM 15 MG CAP PO PRN (18:45)
[2019-02-21] MEDS ORDERED: MORPHINE SULF INJ 2 MG/ML SYRINGE 1ML IV PRN (18:45)
[2019-02-21] MEDS ORDERED: PROMETHAZINE HCL 25 MG/ML 1ML IV PRN (18:45)
[2019-02-21] MEDS ORDERED: traMADol HCL 50 MG TAB PO PRN (18:45)
[2019-02-21] MEDS ORDERED: NITROGLYCERIN 0.4 MG SL TAB SL PRN (18:45)
[2019-02-21] MEDS ORDERED: DEXTROSE (50%) 50ML SYRG IV PRN (18:45)
[2019-02-21] MEDS: ACCU-CHEK COMFORT CURVE STRIP VI SCH ×2 (20:04→23:50)
[2019-02-21] MEDS: InsuLIN REG 1unit/0.01ml Soln (100units/ml) SC SCH ×2 (20:05→23:50)
[2019-02-21] MEDS: FAMOTIDINE 20 MG TAB PO SCH ×2 (22:00→22:16)
[2019-02-21 22:40] VITALS: BP_SYST 160; BP_SYST 96; BP_DIAS 48; BP_DIAS 84
[2019-02-21] MEDS ORDERED: ATOR20TA50 PO (23:31)
[2019-02-21] MEDS ORDERED: AMLO10TA13 PO (23:31)
[2019-02-21] MEDS ORDERED: HYD20I PO (23:31)
[2019-02-21] MEDS ORDERED: INSUINJ2 SC (23:31)
[2019-02-21] MEDS ORDERED: SEVE800T PO (23:31)
[2019-02-21] MEDS ORDERED: HYDR-4296 PO (23:31)
[2019-02-21] MEDS ORDERED: ISO60SRT PO (23:31)
[2019-02-21] MEDS ORDERED: MET50T PO (23:31)
[2019-02-21 23:33] VITALS: BP 160/84
[2019-02-22] MEDS: InsuLIN REG 1unit/0.01ml Soln (100units/ml) SC SCH ×3 (04:00→12:00)
[2019-02-22] MEDS: ACCU-CHEK COMFORT CURVE STRIP VI SCH ×3 (04:00→12:00)
[2019-02-22 05:04] VITALS: BP 157/86
--- NOTE | 2019-02-22 07:30 | NUR ---
Opening Shift Note Assumed care of patient, who is alert and oriented x4. No S/S of distress/SOB or pain. Hemodialysis catheter dressing to the right upper chest is dry and intact, with catheter hanging, taped down for stability. Bed is in the lowest position with 2x side rails up for safety. Call light is within reach. Instructed on POC and to call for assist PRN, will continue to monitor for changes Q1hr and PRN.
[2019-02-22 08:00] VITALS: BP 164/94
[2019-02-22 09:00] VITALS: BP 164/94
--- NOTE | 2019-02-22 10:15 | NUR ---
DR KAUSHIK LEON
--- NOTE | 2019-02-22 10:50 | NUR ---
DR EWELINA LEON
--- NOTE | 2019-02-22 11:00 | NUR ---
RECEIVED PAPER FROM RADIOLOGY REGARDING CONSULT THAT WAS PLACED BY [facility] FOR HD CATH . PER RADIOLOGY THERE IS NO RADIOLOGIST AT THIS TIME AND PROCEDURE WILL NOT BE DONE UNTIL MONDAY. DR THEODORE NOTIFIED WELL DR FAULKNER. CONSENTS SIGNED IN CHART AND PATIENT AWARE. PER BOTH MD PATIENT IS TO BE DISCHARGED AND HAVE THIS DONE OUTPATIENT.
[2019-02-22] MEDS ORDERED: LISI-275 PO (12:05)
[2019-02-22] MEDS ORDERED: HYDR50TA15 PO (12:05)
[2019-02-22] MEDS ORDERED: ASPI81CH59 PO (12:05)
[2019-02-22] MEDS ORDERED: METO-169 PO (12:05)
[2019-02-22] MEDS ORDERED: ATOR20TA50 PO (12:05)
[2019-02-22] MEDS ORDERED: FAM20T PO (12:05)
[2019-02-22] MEDS ORDERED: SEVE800T PO (12:05)
[2019-02-22] MEDS ORDERED: INSU1INJ4 SC (12:05)
[2019-02-22 13:00] VITALS: BP 165/89
[2019-02-22 14:02] VITALS: BP 164/94
--- NOTE | 2019-02-22 14:30 | NUR ---
Discharge instructions given as ordered. Encourage to follow up with PMD as instructed. All questions and concerns addressed. Patient verbalized understanding. Medication reconciliation form completed and copy given to patient. IV removed with catheter intact, pressure dressing applied and patient tolerated well. Telemetry unit returned to ICU. Patient ambulated out of hospital with all personal belongings, accompanied by a family member. No distress noted at time of departure.
== END 2019-02-22 14:30 | disposition home or self-care (01) | DRG 314 ==
LOC: ER 10:16 → TELE 10:17 → TELE-WESTW 22:30
PROVIDERS: ADMIT Internal Medicine; ATTEND Hospitalist
DX: T82.41XA Breakdown (mechanical) of vascular dialysis catheter, initial encounter (principal); N18.6 End stage renal disease; I13.2 Hypertensive heart and chronic kidney disease with heart failure and with stage 5 chronic kidney disease, or end stage renal disease; I50.22 Chronic systolic (congestive) heart failure; E78.5 Hyperlipidemia, unspecified; I25.2 Old myocardial infarction; G47.30 Sleep apnea, unspecified; E11.22 Type 2 diabetes mellitus with diabetic chronic kidney disease; E66.01 Morbid (severe) obesity due to excess calories; G47.00 Insomnia, unspecified; E11.65 Type 2 diabetes mellitus with hyperglycemia; D72.829 Elevated white blood cell count, unspecified; I25.5 Ischemic cardiomyopathy; Y71.2 Prosthetic and other implants, materials and accessory cardiovascular devices associated with adverse incidents; E11.21 Type 2 diabetes mellitus with diabetic nephropathy; Z99.2 Dependence on renal dialysis; Z83.3 Family history of diabetes mellitus; Z82.49 Family history of ischemic heart disease and other diseases of the circulatory system; Z79.4 Long term (current) use of insulin; Z79.899 Other long term (current) drug therapy; Y92.89 Other specified places as the place of occurrence of the external cause; Z68.38 Body mass index [BMI] 38.0-38.9, adult
CPT/HCPCS: 36415; 71046; 80053; 82962; 83036; 85025; 85610; 85730; 87081; G0378; J1815

== ENCOUNTER 2023-05-20 22:59 | Emergency (ER) | payer BC, OTHER ==
[~2023-05-20] VITALS: Ht 175.3 cm; Wt 120.1 kg
[~2023-05-20 22:59] MED LIST changes: -AMLO5TAB15 PO; +ASPI81CH59 PO; +ATOR20TA50 PO; +FAMO20TA10 PO; +HYDR-4297 PO; -INSREG3 SUBCUT; +INSU1INJ4 SC; -INSUINJ2 SC; +LISI-275 PO; -LISI-285 PO; -METF-370 PO; +METO-289 PO; +SEVE800T PO
[2023-05-20 23:46] LABS: Basophils # (auto) 0.1 10 ^3/uL (0-0.2); Basophils % (auto) 0.7 % (0.0-2.0); Eosinophils # (auto) 0.4 10 ^3/uL (0-0.8); Eosinophils % (auto) 3.9 % (0.0-7.0); Hemoglobin 11.8 g/dL (13.5-17.5); Lymphocytes # (auto) 2.9 10 ^3/uL (0.4-5.4); Lymphocytes % (auto) 25.8 % (10.0-50.0); Mean Corpuscular Hemoglobin 28.9 pg (28.0-32.0); Mean Corpuscular Hgb Conc. 32.6 g/dL (32.0-36.0); Mean Corpuscular Volume 88.4 fL (80.0-100.0); Monocytes # (auto) 0.9 10 ^3/uL (0-1.3); Monocytes % (auto) 7.8 % (0.0-12.0); Neutrophils # (auto) 6.9 10 ^3/uL (1.6-8.6); Neutrophils % (auto) 61.8 % (37.0-80.0); Red Blood Cells 4.08 10^6/uL (4.5-5.90); Red Cell Distribution Width 14.8 % (11.8-14.3); White Blood Cell 11.2 10^3/uL (4.4-10.8)
[2023-05-20] MEDS: HYDROcodone-ACET 10/325MG TAB PO ONE (23:51)
[2023-05-21 00:03] LABS: Alanine Aminotransferase 13 U/L (7-40); Albumin 4.6 g/dL (3.2-4.8); Alkaline Phosphatase 231 U/L (46-116); Anion Gap 10 (5-15); Aspartate Aminotransferase < 8 U/L (13-40); BUN/Creatinine Ratio 6.2 (10.0-20.0); Bilirubin, Total 0.4 mg/dL (0.2-1.0); Blood Urea Nitrogen 43 mg/dL (9-23); Calcium 7.8 mg/dL (8.7-10.4); Carbon Dioxide 26 mmol/L (20-30); Chloride 102 mmol/L (98-107); Glucose 109 mg/dL (74-106); Lipase 59 U/L (12-53); Potassium 3.7 mmol/L (3.5-5.1); Sodium 138 mmol/L (136-145)
[2023-05-21 00:04] LABS: Total Protein 8.4 g/dL (5.7-8.2)
[2023-05-21] MEDS ORDERED: ACET500T58 PO (00:31)
[2023-05-21] MEDS ORDERED: LEVO750T8 PO (00:31)
[2023-05-21 00:42] VITALS: BP 125/71; PULSE 80; RESP 16; TEMP 98.3; O2SAT 96
[2023-05-21] MEDS: levoFLOXacin 250 MG TAB PO ONE (00:51)
== END 2023-05-21 00:52 | disposition home or self-care (01) ==
LOC: ER 22:59
DX: N39.0 Urinary tract infection, site not specified (principal); I13.2 Hypertensive heart and chronic kidney disease with heart failure and with stage 5 chronic kidney disease, or end stage renal disease; E11.22 Type 2 diabetes mellitus with diabetic chronic kidney disease; N18.6 End stage renal disease; I50.9 Heart failure, unspecified; I25.2 Old myocardial infarction; Z79.899 Other long term (current) drug therapy
CPT/HCPCS: 36415; 80053; 83605; 83690; 85025